=== PATIENT | female | born 1930 | race Caucasian/White ===

== ENCOUNTER 2016-08-13 11:56 | Emergency (ER) | payer OTHER ==
[2016-08-13 12:04] VITALS: BP 161/78; PULSE 78; TEMP 97.9; BMI 23.4
--- NOTE | 2016-08-13 12:11 | PDOC ---
History of Present Illness - General Chief Complaint: Cold Symptoms Stated Complaint: NECK PAIN Time Seen by Provider: 08/13/16 12:04 History Source: Patient Exam Limitations: No Limitations - History of Present Illness Initial Comments: 85 yo F history hyperlipidemia presents with congestion, head cold symptoms. She states that she and most of her family came down with a cold more than a week ago. She had congestion, sneezing, and cough, most of which improved. However, she has had persistent nasal congestion and postnasal drip that has not improved with her allergy medicines. She recently ran out of flonase, which she has taken in the past for sinus problems. No fever, chills, malaise. Denies SOB, cp. Past History - Past Medical History Allergies/Adverse Reactions: Allergies Allergy/AdvReac Type Severity Reaction Status Date / Time Penicillins Allergy Intermediate rash Verified 08/13/16 11:57 Home Medications: Ambulatory Orders Atorvastatin Ca [Lipitor] 10 mg PO HS 11/27/13 Doxycycline Hyclate [Vibramycin] 100 mg PO BID #14 capsule 08/13/16 Fluticasone Prop 0.05% Nasal [Flonase -] 1 - 2 spray NS DAILY #1 spray.pump 10/25 Hypercholesterolemia: Yes - Psycho/Social/Smoking Cessation Hx Anxiety: No Suicidal Ideation: No Smoking History: Never smoked Have you smoked in the past 12 months: No Information on smoking cessation initiated: No Hx Alcohol Use: No Drug/Substance Use Hx: No Substance Use Type: None Review of Systems - Review of Systems Able to Perform ROS?: Yes Comments:: GENERAL/CONSTITUTIONAL: No fever or chills. No weakness. HEAD, EYES, EARS, NOSE AND THROAT: No change in vision. No ear pain or discharge. No sore throat. +Nasal congestion and post nasal drip. CARDIOVASCULAR: No chest pain or shortness of breath. RESPIRATORY: No cough, wheezing, or hemoptysis. GASTROINTESTINAL: No nausea, vomiting, diarrhea or constipation. GENITOURINARY: No dysuria, frequency, or change in urination. MUSCULOSKELETAL: No joint or muscle swelling or pain. No neck or back pain. SKIN: No rash NEUROLOGIC: No headache, vertigo, loss of consciousness, or change in strength/ sensation. ENDOCRINE: No increased thirst. No abnormal weight change. HEMATOLOGIC/LYMPHATIC: No anemia, easy bleeding, or history of blood clots. ALLERGIC/IMMUNOLOGIC: No hives or skin allergy. *Physical Exam - Vital Signs Last Vital Signs Temp Pulse Resp BP Pulse Ox 97.9 F 78 18 161/78 100 08/13/16 11:59 08/13/16 11:59 08/13/16 11:59 08/13/16 11:59 08/13/16 11:59 - Physical Exam Comments: GENERAL: Awake, alert, and fully oriented, in no acute distress HEAD: No signs of trauma EYES: PERRLA, EOMI, sclera anicteric, conjunctiva clear ENT: Auricles normal inspection, hearing grossly normal, nares patent, oropharynx clear without exudates. Moist mucosa. Nasal septum deviated to the patient's left, with very small air passage. +Boggy turbinates B/L. NECK: Normal ROM, supple, no lymphadenopathy, JVD, or masses LUNGS: Breath sounds equal, clear to auscultation bilaterally. No wheezes, and no crackles HEART: Regular rate and rhythm, normal S1 and S2, no murmurs, rubs or gallops ABDOMEN: Soft, nontender, normoactive bowel sounds. No guarding, no rebound. No masses EXTREMITIES: Normal range of motion, no edema. No clubbing or cyanosis. No cords, erythema, or tenderness NEUROLOGICAL: Cranial nerves II through XII grossly intact. Normal speech, normal gait SKIN: Warm, Dry, normal turgor, no rashes or lesions noted. Medical Decision Making - Medical Decision Making 08/13/16 12:28 Will treat with abx based on protracted sinus symptoms despite resolution of the initial viral illness, as well as due to her physical findings. *DC/Admit/Observation/Transfer Diagnosis at time of Disposition: Sinus infection Qualifiers: Sinusitis location: unspecified location Chronicity: acute Recurrence: non- recurrent Qualified Code(s): J01.90 - Acute sinusitis, unspecified - Discharge Dispostion Disposition: HOME Condition at time of disposition: Stable Admit: No - Prescriptions Prescriptions: Fluticasone Prop 0.05% Nasal [Flonase -] 1 - 2 spray NS DAILY #1 spray.pump Doxycycline Hyclate [Vibramycin] 100 mg PO BID #14 capsule - Patient Instructions Printed Discharge Instructions: DI for Sinusitis
== END 2016-08-13 12:26 | disposition home or self-care (01) ==
LOC: FER 11:56
DX: J01.90 Acute sinusitis, unspecified (principal); E78.00 Pure hypercholesterolemia, unspecified
CPT/HCPCS: 99282-25

== ENCOUNTER 2017-08-22 12:09 | Emergency (ER) | payer OTHER ==
[2017-08-22 12:16] VITALS: BP 139/63; PULSE 72; TEMP 98.4; BMI 23.4
--- NOTE | 2017-08-22 14:01 | PDOC ---
History of Present Illness - General Chief Complaint: Cold Symptoms Stated Complaint: SINUS INFECTION Time Seen by Provider: 08/22/17 12:11 - History of Present Illness Initial Comments: 08/22/17 14:48 Chief complaint: Nasal and facial congestion with pain over the cheeks for 2 days History of present illness: URI symptoms for 1 week, with increased nasal congestion and pain over the maxillary sinuses for 2 days. No fever/chills. Review of systems: No chest pain, shortness of breath, cough, abdominal pain, nausea, vomiting, diarrhea, urinary tract symptoms, vaginal bleeding or discharge. No visual or focal neurologic symptoms. Past medical history: Hypercholesterolemia on Lipitor, frequency sinus infections Social/family history reviewed and noncontributory Physical exam: Alert oriented no acute distress cooperative Afebrile, vital signs normal HEENT: Nasal congestion, mild tenderness to percussion over the maxillary sinuses. No purulent discharge. Ears and throat clear. Neck supple without bruit mass or nodes Chest clear, full breath sounds throughout bilaterally, no wheezes rales or rhonchi CV without murmur rub or gallop pulses full and symmetric no JVD or edema no bruits Abdomen soft nontender without mass or organomegaly Neurological intact Skin clear, no rash, adequate turgor and wet mucous membranes Extremities no CCE Impression: Probable viral URI, possible superimposed sinus infection Plan: Antibiotics rest fluids and decongestant. Recheck if no improvement 2-3 days Past History - Past Medical History Allergies/Adverse Reactions: Allergies Allergy/AdvReac Type Severity Reaction Status Date / Time Penicillins Allergy Intermediate rash Verified 08/22/17 12:10 Home Medications: Ambulatory Orders Azithromycin [Zithromax 250mg Tablets -] 250 mg PO UTDICT #6 tab 08/22/17 COPD: No Hypercholesterolemia: Yes - Suicide/Smoking/Psychosocial Hx Smoking History: Never smoked Have you smoked in the past 12 months: No Information on smoking cessation initiated: No Hx Alcohol Use: No Drug/Substance Use Hx: No Substance Use Type: None *Physical Exam - Vital Signs Last Vital Signs Temp Pulse Resp BP Pulse Ox 98.4 F 72 16 139/63 99 08/22/17 12:10 08/22/17 12:10 08/22/17 12:10 08/22/17 12:10 08/22/17 12:10 *DC/Admit/Observation/Transfer Diagnosis at time of Disposition: Upper respiratory infection Qualifiers: URI type: unspecified viral URI Qualified Code(s): J06.9 - Acute upper respiratory infection, unspecified - Discharge Dispostion Disposition: HOME Condition at time of disposition: Stable - Prescriptions Prescriptions: Azithromycin [Zithromax 250mg Tablets -] 250 mg PO UTDICT #6 tab - Referrals - Patient Instructions Printed Discharge Instructions: DI for Viral Upper Respiratory Infection -- Adult Additional Instructions: Return to ER if there is fever, chest pain, shortness of breath, excessive fatigue, nausea, vomiting, or diarrhea. Otherwise follow-up with Dr. Reza in 3- 5 days. - Post Discharge Activity
== END 2017-08-22 14:26 | disposition home or self-care (01) ==
LOC: FER 12:09
DX: J06.9 Acute upper respiratory infection, unspecified (principal); E78.00 Pure hypercholesterolemia, unspecified
CPT/HCPCS: 99281-25

== ENCOUNTER 2021-02-25 13:20 | Inpatient (IN) | payer OTHER ==
[2021-02-25 13:45] LABS: BASO % 0.8 % (0-2.0); EOS % 0.1 % (0-4.5); HEMATOCRIT 33.3 % (32.4-45.2); HEMOGLOBIN 11.5 GM/dl (10.7-15.3); MCH 30.1 pg (25.7-33.7); MCHC 34.6 g/dl (32.0-36.0); MEAN CELL VOLUME 86.9 fl (80-96); MEAN PLT VOLUME 7.6 fl (7.5-11.1); MONO % 1.8 % (3.8-10.2); NEUT % 91.3 % (42.8-82.8); PLATELET COUNT 387 10^3/uL (134-434); RBC 3.83 M/mm3 (3.60-5.2); RDW 12.8 % (11.6-15.6); WHITE BLOOD COUNT 13.4 K/mm3 (4.0-10.8)
[2021-02-25 14:05] LABS: ACTIVATED PTT 25.7 SECONDS (25.2-36.5)
[2021-02-25 14:10] LABS: INR 1.19 (0.82-1.09); PROTHROMBIN TIME (PATIENT) 13.2 SEC (10.2-13.0)
[2021-02-25] MEDS ORDERED: VANCOMYCIN 1 GM in D5W (PRE-DOCKED) 1,000 MG/250 ML IVPB ONE (14:20)
[2021-02-25] MEDS ORDERED: AZTREONAM 1 GM in DEXTROSE 5%-WATER - 50 ML IVPB ONE (14:21)
[2021-02-25 14:24] LABS: ALBUMIN 3.7 g/dl (3.4-5.0); BILIRUBIN,TOTAL 2.1 mg/dl (0.2-1); CALCIUM 8.1 mg/dl (8.5-10); CREATININE 0.5 mg/dl (0.55-1.3); TOT PROT 6.6 g/dl (6.4-8.2)
[2021-02-25] MEDS ORDERED: ASPIRIN 325 MG TABLET ONE (14:58)
[2021-02-25] MEDS ORDERED: SODIUM CHLORIDE 0.9% 1000 ML INFUS.BAG IV ONE (15:01)
[2021-02-25] MEDS ORDERED: ASPIRIN 81 MG CHEWABLE TABLETS PO ONE (15:01)
[2021-02-25 15:17] LABS: EPITHELIAL CELLS FEW /hpf
[2021-02-25] MEDS ORDERED: SODIUM CHLORIDE 1,000 ML IV SCH ×2 (17:15→23:30)
[2021-02-25 18:39] LABS: HEMOGLOBIN 9.9 GM/dL (10.7-15.3); MCH 29.7 pg (25.7-33.7); MCHC 35.3 g/dl (32.0-36.0); MEAN PLT VOLUME 7.5 fl (7.5-11.1); PLATELET COUNT 295 10^3/uL (134-434); RBC 3.33 M/mm3 (3.60-5.2); RDW 13.5 % (11.6-15.6); WHITE BLOOD COUNT 12.8 K/mm3 (4.0-10.0)
[2021-02-25 18:52] LABS: CHLORIDE 76 mmol/L (98-107)
[2021-02-25 18:54] LABS: BLOOD UREA NITROGEN 9.4 mg/dL (7-18); CALCIUM 7.8 mg/dL (8.5-10.1)
[2021-02-25 18:55] LABS: AMYLASE 52 U/L (25-115); CO2 20 mmol/L (21-32); GLUCOSE,RANDOM 93 mg/dL (74-106); MAGNESIUM 1.6 mg/dL (1.8-2.4)
[2021-02-25 18:58] LABS: CREATININE 0.4 mg/dL (0.55-1.3); PHOSPHOROUS 2.3 mg/dL (2.5-4.9)
[2021-02-25 19:15] LABS: ANION GAP 14 MMOL/L (8-16); SODIUM 110 mmol/L (136-145)
[2021-02-25 19:36] LABS: OSMOLALITY,SERUM 216 mosm/kg (278-305)
[2021-02-25] MEDS: MUPIROCIN 2% TOPICAL OINTMENT FOR DECOLONIZATION NS SCH (21:59)
[2021-02-25] MEDS: CHLORHEXIDINE GLUCONATE 4% CLEANSER FOR DECOLONIZATION TP SCH (21:59)
[2021-02-25] MEDS ORDERED: HEPARIN NA (PORCINE) 5,000 UNITS/ML 1ML VIAL SQ SCH (22:00)
[2021-02-25 22:49] LABS: CHLORIDE 78 mmol/L (98-107)
[2021-02-25 22:50] LABS: BLOOD UREA NITROGEN 8.7 mg/dL (7-18); CALCIUM 7.9 mg/dL (8.5-10.1); CO2 20 mmol/L (21-32); GLUCOSE,RANDOM 86 mg/dL (74-106); LIPASE 312 U/L (73-393)
[2021-02-25 22:54] LABS: CREATININE 0.4 mg/dL (0.55-1.3)
[2021-02-25 23:03] LABS: ANION GAP 13 MMOL/L (8-16); SODIUM 112 mmol/L (136-145)
[2021-02-25] MEDS ORDERED: SODIUM CHLORIDE 0.45% 1,000 ML IV SCH (23:30)
[2021-02-26 02:37] LABS: CHLORIDE 82 mmol/L (98-107)
[2021-02-26 02:38] LABS: CALCIUM 8.3 mg/dL (8.5-10.1)
[2021-02-26 02:39] LABS: BLOOD UREA NITROGEN 8.3 mg/dL (7-18); CO2 21 mmol/L (21-32); GLUCOSE,RANDOM 86 mg/dL (74-106)
[2021-02-26 02:42] LABS: CREATININE 0.4 mg/dL (0.55-1.3)
[2021-02-26 02:49] LABS: ANION GAP 13 MMOL/L (8-16); SODIUM 116 mmol/L (136-145)
[2021-02-26] MEDS ORDERED: SODIUM CHLORIDE 0.45% 1,000 ML IV SCH (03:00)
[2021-02-26 07:26] LABS: CHLORIDE 83 mmol/L (98-107)
[2021-02-26 07:27] LABS: CALCIUM 8.2 mg/dL (8.5-10.1)
[2021-02-26 07:28] LABS: CO2 22 mmol/L (21-32); GLUCOSE,RANDOM 76 mg/dL (74-106)
[2021-02-26 07:31] LABS: CREATININE 0.4 mg/dL (0.55-1.3)
[2021-02-26 07:36] LABS: ANION GAP 13 MMOL/L (8-16); SODIUM 118 mmol/L (136-145)
[2021-02-26] MEDS ORDERED: NAPH,MB-DB/K PH,MBDB POWDER PACKET NGT ONE (07:50)
[2021-02-26] MEDS ORDERED: MAGNESIUM 2GM/50ML STERILE WATER IVPB IVPB ONE (07:50)
[2021-02-26] MEDS: KCL 10 MEQ IVPB 10 MEQ/100 ML INFUS.BAG IVPB SCH ×4 (08:45→21:34)
[2021-02-26] MEDS ORDERED: AZTREONAM 1 GM VIAL (RESTRICTED TO ID) ONE ×2 (09:18→16:51)
[2021-02-26] MEDS ORDERED: DEXTROSE 5%-WATER - 50 ML IVPB ONE ×2 (09:19→16:51)
[2021-02-26] MEDS: AZITHROMYCIN IVPB 500 MG/250 ML BAG IVPB SCH (10:06)
[2021-02-26] MEDS: AZTREONAM 1 GM in DEXTROSE 5%-WATER - 50 ML IVPB SCH ×2 (10:19→17:03)
[2021-02-26] MEDS: MUPIROCIN 2% TOPICAL OINTMENT FOR DECOLONIZATION NS SCH ×2 (10:20→22:10)
[2021-02-26] MEDS: VANCOMYCIN 1 GRAM (PRE-DOCKED) 1,000 MG/250 ML BAG IVPB SCH ×2 (11:09→22:10)
[2021-02-26 12:06] LABS: CHLORIDE 84 mmol/L (98-107)
[2021-02-26 12:07] LABS: CALCIUM 8.5 mg/dL (8.5-10.1)
[2021-02-26 12:08] LABS: BLOOD UREA NITROGEN 8.6 mg/dL (7-18); CO2 24 mmol/L (21-32); GLUCOSE,RANDOM 122 mg/dL (74-106)
[2021-02-26 12:11] LABS: CREATININE 0.5 mg/dL (0.55-1.3)
[2021-02-26 12:14] LABS: IRON SERUM 23 ug/dL (50-175); TOTAL IRON BINDING CAPACITY 252 ug/dL (250-450)
[2021-02-26 12:16] LABS: ANION GAP 12 MMOL/L (8-16); SODIUM 119 mmol/L (136-145)
[2021-02-26 12:56] LABS: CHLORIDE 85 mmol/L (98-107)
[2021-02-26 12:59] LABS: BLOOD UREA NITROGEN 8.6 mg/dL (7-18); CO2 22 mmol/L (21-32); GLUCOSE,RANDOM 120 mg/dL (74-106)
[2021-02-26 13:02] LABS: CREATININE 0.5 mg/dL (0.55-1.3)
[2021-02-26 13:05] LABS: ANION GAP 12 MMOL/L (8-16); SODIUM 118 mmol/L (136-145)
[2021-02-26] MEDS: HEPARIN NA (PORCINE) 5,000 UNITS/ML 1ML VIAL SQ SCH ×2 (14:37→21:35)
[2021-02-26 15:29] LABS: CHLORIDE 85 mmol/L (98-107)
[2021-02-26 15:32] LABS: CALCIUM 8.2 mg/dL (8.5-10.1); CO2 23 mmol/L (21-32); GLUCOSE,RANDOM 111 mg/dL (74-106)
[2021-02-26 15:35] LABS: ANION GAP 11 MMOL/L (8-16); CREATININE 0.5 mg/dL (0.55-1.3); SODIUM 119 mmol/L (136-145)
[2021-02-26] MEDS ORDERED: SODIUM CHLORIDE 0.45%/POT 20 MEQ/1,000 ML INFUS.BAG IV SCH (19:30)
[2021-02-26] MEDS ORDERED: METOPROLOL TARTRATE 5 MG/5 ML VIAL IVPUSH PRN (19:39)
[2021-02-26 19:51] LABS: CHLORIDE 84 mmol/L (98-107)
[2021-02-26 19:56] LABS: BLOOD UREA NITROGEN 7.8 mg/dL (7-18); CALCIUM 8.3 mg/dL (8.5-10.1); CO2 24 mmol/L (21-32); GLUCOSE,RANDOM 114 mg/dL (74-106)
[2021-02-26 20:00] LABS: CREATININE 0.5 mg/dL (0.55-1.3)
[2021-02-26 20:12] LABS: ANION GAP 11 MMOL/L (8-16); SODIUM 118 mmol/L (136-145)
[2021-02-26] MEDS ORDERED: POTASSIUM CHLORIDE ORAL LIQUID 20 MEQ/15 ML PO ONE (21:03)
[2021-02-26] MEDS: CHLORHEXIDINE GLUCONATE 4% CLEANSER FOR DECOLONIZATION TP SCH (21:35)
[2021-02-26] MEDS: METOPROLOL TARTRATE 5 MG/5 ML VIAL IVPUSH PRN (21:35)
[2021-02-26] MEDS ORDERED: ACETAMINOPHEN 1000 MG/100 ML VIAL (NON FORMULARY) IVPB ONE (22:28)
[2021-02-26] MEDS ORDERED: AMIODARONE IN DEXTROSE,ISO-OSM 150 MG/100 ML BAG IVPB ONE (23:21)
[2021-02-26] MEDS ORDERED: AMIODARONE IN DEXTROSE,ISO-OSM 150 MG/100 ML BAG ONE (23:28)
[2021-02-26] MEDS ORDERED: AMIODARONE IN DEXTROSE,ISO-OSM 360 MG/200 ML BAG IVPB ONE (23:40)
[2021-02-27] MEDS: KCL 10 MEQ IVPB 10 MEQ/100 ML INFUS.BAG IVPB SCH ×4 (00:05→12:54)
[2021-02-27] MEDS ORDERED: SODIUM CHLORIDE 0.45% 1,000 ML IV SCH ×3 (02:00→22:40)
[2021-02-27] MEDS ORDERED: PT OWN MED DRAWER 7, Y5N ONE ×2 (02:13→09:33)
[2021-02-27] MEDS ORDERED: AZTREONAM 1 GM VIAL (RESTRICTED TO ID) ONE ×2 (03:16→09:33)
[2021-02-27] MEDS ORDERED: DEXTROSE 5%-WATER - 50 ML IVPB ONE ×2 (03:17→09:33)
[2021-02-27] MEDS: AZTREONAM 1 GM in DEXTROSE 5%-WATER - 50 ML IVPB SCH ×3 (03:21→17:33)
[2021-02-27 03:34] LABS: CALCIUM 8.4 mg/dL (8.5-10.1)
[2021-02-27 03:35] LABS: BLOOD UREA NITROGEN 9.5 mg/dL (7-18)
[2021-02-27 03:38] LABS: CREATININE 0.6 mg/dL (0.55-1.3)
[2021-02-27] MEDS ORDERED: AMIODARONE IN DEXTROSE,ISO-OSM 360 MG/200 ML BAG IVPB SCH (05:40)
[2021-02-27 06:54] LABS: CHLORIDE 85 mmol/L (98-107)
[2021-02-27 06:55] LABS: BLOOD UREA NITROGEN 10.7 mg/dL (7-18); CO2 22 mmol/L (21-32); GLUCOSE,RANDOM 99 mg/dL (74-106); MAGNESIUM 2.2 mg/dL (1.8-2.4)
[2021-02-27 06:59] LABS: CREATININE 0.6 mg/dL (0.55-1.3)
[2021-02-27 07:00] LABS: PHOSPHOROUS 2.4 mg/dL (2.5-4.9)
[2021-02-27 07:27] LABS: ANION GAP 12 MMOL/L (8-16); SODIUM 118 mmol/L (136-145)
[2021-02-27] MEDS ORDERED: POTASSIUM CHLORIDE TABS 20 MEQ TABLET.ER (FP) PO ONE (07:30)
[2021-02-27] MEDS ORDERED: SODIUM CHLORIDE 1,000 ML IV SCH ×3 (07:30→22:00)
[2021-02-27 07:36] LABS: BASO % 0.1 % (0-2.0); EOS % 0.4 % (0-4.5); HEMATOCRIT 33.5 % (32.4-45.2); HEMOGLOBIN 11.8 GM/dL (10.7-15.3); LYMPH % 11.5 % (8-40); MCH 29.7 pg (25.7-33.7); MCHC 35.3 g/dl (32.0-36.0); MONO % 6.6 % (3.8-10.2); NEUT % 81.4 % (42.8-82.8); PLATELET COUNT 356 10^3/uL (134-434); RBC 3.98 M/mm3 (3.60-5.2); RDW 13.6 % (11.6-15.6); WHITE BLOOD COUNT 15.1 K/mm3 (4.0-10.0)
[2021-02-27] MEDS ORDERED: NAPH,MB-DB/K PH,MBDB POWDER PACKET NGT ONE (08:07)
[2021-02-27 08:26] LABS: MEAN CELL VOLUME 84.1 fl (80-96)
[2021-02-27] MEDS: AZITHROMYCIN IVPB 500 MG/250 ML BAG IVPB SCH (09:00)
[2021-02-27] MEDS: METOPROLOL TARTRATE 5 MG/5 ML VIAL IVPUSH PRN (09:50)
[2021-02-27] MEDS: VANCOMYCIN 1 GRAM (PRE-DOCKED) 1,000 MG/250 ML BAG IVPB SCH ×2 (11:11→20:46)
[2021-02-27 11:16] LABS: CALCIUM 8.3 mg/dL (8.5-10.1); CHLORIDE 84 mmol/L (98-107)
[2021-02-27 11:18] LABS: CO2 21 mmol/L (21-32); GLUCOSE,RANDOM 145 mg/dL (74-106)
[2021-02-27 11:20] LABS: CREATININE 0.8 mg/dL (0.55-1.3)
[2021-02-27 11:26] LABS: ANION GAP 12 MMOL/L (8-16); SODIUM 117 mmol/L (136-145)
[2021-02-27] MEDS: ASPIRIN 81 MG CHEWABLE TABLETS PO SCH (11:52)
[2021-02-27] MEDS: MUPIROCIN 2% TOPICAL OINTMENT FOR DECOLONIZATION NS SCH ×2 (12:00→21:05)
[2021-02-27] MEDS: METOPROLOL TARTRATE 25 MG TABLET (FP) PO SCH ×2 (12:54→21:05)
[2021-02-27] MEDS ORDERED: NAPH,MB-DB/K PH,MBDB POWDER PACKET PO ONE (13:02)
[2021-02-27 20:04] LABS: ANION GAP 11 MMOL/L (8-16); BLOOD UREA NITROGEN 11.2 mg/dL (7-18); CALCIUM 8.1 mg/dL (8.5-10.1); CHLORIDE 84 mmol/L (98-107); CO2 21 mmol/L (21-32); CREATININE 0.6 mg/dL (0.55-1.3); GLUCOSE,RANDOM 92 mg/dL (74-106); SODIUM 116 mmol/L (136-145)
[2021-02-27] MEDS ORDERED: SODIUM CHLORIDE 3% 500 ML/500 ML INFUS.BAG IV ONE (20:12)
[2021-02-27] MEDS: CHLORHEXIDINE GLUCONATE 4% CLEANSER FOR DECOLONIZATION TP SCH (21:05)
[2021-02-27] MEDS: QUEtiapine FUMARATE 25 MG TABLET PO SCH (21:45)
[2021-02-27] MEDS ORDERED: ENOXAPARIN NA (PORCINE) 60 MG/0.6 ML DISP.SYRIN SQ SCH (22:00)
[2021-02-27] MEDS ORDERED: SODIUM CHLORIDE 0.45% IV SCH (22:40)
[2021-02-27] MEDS ORDERED: KCL 20 MEQ IV SCH (22:40)
[2021-02-27] MEDS: APIXABAN 2.5 MG TABLET PO SCH (22:44)
[2021-02-27 23:23] LABS: CHLORIDE 87 mmol/L (98-107)
[2021-02-27 23:24] LABS: BLOOD UREA NITROGEN 9.9 mg/dL (7-18); CALCIUM 7.7 mg/dL (8.5-10.1); CO2 20 mmol/L (21-32); GLUCOSE,RANDOM 120 mg/dL (74-106)
[2021-02-27 23:29] LABS: CREATININE 0.7 mg/dL (0.55-1.3)
[2021-02-28 00:05] LABS: ANION GAP 10 MMOL/L (8-16); SODIUM 117 mmol/L (136-145)
[2021-02-28] MEDS ORDERED: LORazepam 2 MG/ML SDV VIAL IVPUSH PRN (00:29)
[2021-02-28] MEDS ORDERED: LORazepam 2 MG/ML SDV VIAL ONE (00:34)
[2021-02-28] MEDS ORDERED: DEXTROSE 5%-WATER - 50 ML IVPB ONE ×3 (00:59→17:33)
[2021-02-28] MEDS ORDERED: AZTREONAM 1 GM VIAL (RESTRICTED TO ID) ONE ×3 (00:59→17:32)
[2021-02-28] MEDS: AZTREONAM 1 GM in DEXTROSE 5%-WATER - 50 ML IVPB SCH ×3 (01:01→17:42)
[2021-02-28 01:22] LABS: CHLORIDE 88 mmol/L (98-107)
[2021-02-28 01:25] LABS: BLOOD UREA NITROGEN 9.7 mg/dL (7-18); CALCIUM 7.9 mg/dL (8.5-10.1); CO2 21 mmol/L (21-32); GLUCOSE,RANDOM 102 mg/dL (74-106)
[2021-02-28 01:28] LABS: CREATININE 0.6 mg/dL (0.55-1.3)
[2021-02-28 01:46] LABS: ANION GAP 10 MMOL/L (8-16); SODIUM 118 mmol/L (136-145)
[2021-02-28 07:36] LABS: BASO % 0.1 % (0-2.0); EOS % 1.5 % (0-4.5); HEMATOCRIT 34.5 % (32.4-45.2); HEMOGLOBIN 12.3 GM/dL (10.7-15.3); LYMPH % 10.6 % (8-40); MCH 30.2 pg (25.7-33.7); MCHC 35.6 g/dl (32.0-36.0); MEAN CELL VOLUME 84.9 fl (80-96); MEAN PLT VOLUME 7.8 fl (7.5-11.1); MONO % 6.6 % (3.8-10.2); NEUT % 81.2 % (42.8-82.8); PLATELET COUNT 310 10^3/uL (134-434); RBC 4.07 M/mm3 (3.60-5.2); RDW 14.1 % (11.6-15.6); WHITE BLOOD COUNT 12.9 K/mm3 (4.0-10.0)
[2021-02-28 08:00] LABS: PHOSPHOROUS 2.2 mg/dL (2.5-4.9)
[2021-02-28 08:02] LABS: BLOOD UREA NITROGEN 9.9 mg/dL (7-18); CALCIUM 8.5 mg/dL (8.5-10.1)
[2021-02-28 08:05] LABS: CREATININE 0.7 mg/dL (0.55-1.3)
[2021-02-28] MEDS ORDERED: SODIUM CHLORIDE 3% 500 ML/500 ML INFUS.BAG IV ONE ×2 (09:00→16:34)
[2021-02-28] MEDS: VANCOMYCIN 1 GRAM (PRE-DOCKED) 1,000 MG/250 ML BAG IVPB SCH (09:28)
[2021-02-28] MEDS: ASPIRIN 81 MG CHEWABLE TABLETS PO SCH (09:29)
[2021-02-28] MEDS: METOPROLOL TARTRATE 25 MG TABLET (FP) PO SCH ×2 (09:29→21:39)
[2021-02-28] MEDS: APIXABAN 2.5 MG TABLET PO SCH ×2 (09:29→21:39)
[2021-02-28] MEDS: MUPIROCIN 2% TOPICAL OINTMENT FOR DECOLONIZATION NS SCH ×2 (10:30→21:39)
[2021-02-28 11:10] LABS: CALCIUM 7.9 mg/dL (8.5-10.1)
[2021-02-28 11:13] LABS: CREATININE 0.7 mg/dL (0.55-1.3)
[2021-02-28] MEDS ORDERED: SODIUM CHLORIDE 1,000 ML IV SCH ×2 (11:15→16:14)
[2021-02-28 15:39] LABS: BLOOD UREA NITROGEN 8.5 mg/dL (7-18); CALCIUM 8.5 mg/dL (8.5-10.1)
[2021-02-28 15:43] LABS: CREATININE 0.7 mg/dL (0.55-1.3)
[2021-02-28 19:27] LABS: CALCIUM 8.3 mg/dL (8.5-10.1)
[2021-02-28 19:28] LABS: BLOOD UREA NITROGEN 8.7 mg/dL (7-18)
[2021-02-28 19:31] LABS: CREATININE 0.6 mg/dL (0.55-1.3)
[2021-02-28] MEDS: QUEtiapine FUMARATE 25 MG TABLET PO SCH (21:39)
[2021-02-28] MEDS: CHLORHEXIDINE GLUCONATE 4% CLEANSER FOR DECOLONIZATION TP SCH (22:09)
[2021-03-01] MEDS ORDERED: DEXTROSE 5%-WATER - 50 ML IVPB ONE ×3 (01:06→17:28)
[2021-03-01] MEDS ORDERED: AZTREONAM 1 GM VIAL (RESTRICTED TO ID) ONE ×3 (01:06→17:27)
[2021-03-01] MEDS: AZTREONAM 1 GM in DEXTROSE 5%-WATER - 50 ML IVPB SCH ×3 (01:07→17:38)
[2021-03-01 01:20] LABS: CALCIUM 8.1 mg/dL (8.5-10.1)
[2021-03-01 01:21] LABS: BLOOD UREA NITROGEN 9.2 mg/dL (7-18)
[2021-03-01 01:25] LABS: CREATININE 0.6 mg/dL (0.55-1.3)
[2021-03-01] MEDS ORDERED: SODIUM CHLORIDE 1,000 ML IV SCH ×2 (01:45→13:51)
[2021-03-01 07:39] LABS: CALCIUM 8.6 mg/dL (8.5-10.1)
[2021-03-01 07:41] LABS: BLOOD UREA NITROGEN 10.8 mg/dL (7-18)
[2021-03-01 07:43] LABS: CREATININE 0.6 mg/dL (0.55-1.3)
[2021-03-01] MEDS: METOPROLOL TARTRATE 25 MG TABLET (FP) PO SCH ×2 (09:24→21:08)
[2021-03-01] MEDS: ASPIRIN 81 MG CHEWABLE TABLETS PO SCH (09:24)
[2021-03-01] MEDS: APIXABAN 2.5 MG TABLET PO SCH ×2 (09:24→21:08)
[2021-03-01] MEDS: VANCOMYCIN 1 GRAM (PRE-DOCKED) 1,000 MG/250 ML BAG IVPB SCH ×2 (09:30→23:47)
[2021-03-01 09:48] LABS: BASO % 0.4 % (0-2.0); EOS % 1.8 % (0-4.5); HEMATOCRIT 35.4 % (32.4-45.2); HEMOGLOBIN 12.2 GM/dL (10.7-15.3); LYMPH % 11.1 % (8-40); MCH 29.9 pg (25.7-33.7); MCHC 34.3 g/dl (32.0-36.0); MEAN CELL VOLUME 87.2 fl (80-96); MEAN PLT VOLUME 7.8 fl (7.5-11.1); MONO % 7.9 % (3.8-10.2); NEUT % 78.8 % (42.8-82.8); PLATELET COUNT 320 10^3/uL (134-434); RBC 4.06 M/mm3 (3.60-5.2); RDW 14.3 % (11.6-15.6); WHITE BLOOD COUNT 10.4 K/mm3 (4.0-10.0)
[2021-03-01 10:11] LABS: BLOOD UREA NITROGEN 9.3 mg/dL (7-18); CALCIUM 7.5 mg/dL (8.5-10.1); MAGNESIUM 1.8 mg/dL (1.8-2.4)
[2021-03-01 10:15] LABS: CREATININE 0.5 mg/dL (0.55-1.3); PHOSPHOROUS 2.3 mg/dL (2.5-4.9)
[2021-03-01] MEDS: MUPIROCIN 2% TOPICAL OINTMENT FOR DECOLONIZATION NS SCH ×2 (13:57→21:09)
[2021-03-01 13:59] LABS: BLOOD UREA NITROGEN 12.4 mg/dL (7-18); CALCIUM 8.6 mg/dL (8.5-10.1)
[2021-03-01 14:02] LABS: CREATININE 0.6 mg/dL (0.55-1.3)
[2021-03-01] MEDS: SODIUM CHLORIDE 1 GM TABLET PO SCH ×2 (17:36→22:39)
[2021-03-01] MEDS ORDERED: PT OWN MED DRAWER 7, Y5N ONE (21:02)
[2021-03-01] MEDS: CHLORHEXIDINE GLUCONATE 4% CLEANSER FOR DECOLONIZATION TP SCH (21:08)
[2021-03-01] MEDS: QUEtiapine FUMARATE 25 MG TABLET PO SCH (21:08)
[2021-03-02] MEDS ORDERED: PT OWN MED DRAWER 7, Y5N ONE ×3 (02:28→17:38)
[2021-03-02] MEDS ORDERED: DEXTROSE 5%-WATER - 50 ML IVPB ONE ×2 (03:27→10:09)
[2021-03-02] MEDS ORDERED: AZTREONAM 1 GM VIAL (RESTRICTED TO ID) ONE ×2 (03:27→10:09)
[2021-03-02] MEDS: AZTREONAM 1 GM in DEXTROSE 5%-WATER - 50 ML IVPB SCH ×3 (03:38→18:26)
[2021-03-02 07:28] LABS: HEMATOCRIT 31.8 % (32.4-45.2); HEMOGLOBIN 11.1 GM/dL (10.7-15.3); MCH 30.4 pg (25.7-33.7); MCHC 34.8 g/dl (32.0-36.0); MEAN CELL VOLUME 87.1 fl (80-96); MEAN PLT VOLUME 8.4 fl (7.5-11.1); PLATELET COUNT 360 10^3/uL (134-434); RBC 3.65 M/mm3 (3.60-5.2); RDW 14.5 % (11.6-15.6); WHITE BLOOD COUNT 13.5 K/mm3 (4.0-10.0)
[2021-03-02 07:50] LABS: CALCIUM 8.4 mg/dL (8.5-10.1)
[2021-03-02 07:51] LABS: BLOOD UREA NITROGEN 17.1 mg/dL (7-18)
[2021-03-02 07:53] LABS: CREATININE 0.6 mg/dL (0.55-1.3)
[2021-03-02 07:54] LABS: PHOSPHOROUS 2.9 mg/dL (2.5-4.9)
[2021-03-02 07:55] LABS: BILIRUBIN,TOTAL 0.8 mg/dL (0.2-1); TOT PROT 5.4 g/dl (6.4-8.2)
[2021-03-02 08:03] LABS: ALBUMIN 2.3 g/dl (3.4-5.0)
[2021-03-02] MEDS ORDERED: POLYETHYLENE GLYCOL 3350 119 GM BTL PO SCH (10:00)
[2021-03-02] MEDS: VANCOMYCIN 1 GRAM (PRE-DOCKED) 1,000 MG/250 ML BAG IVPB SCH (10:06)
[2021-03-02] MEDS: DOCUSATE SODIUM 100 MG CAPSULE (FP) PO SCH ×2 (10:12→22:47)
[2021-03-02] MEDS: METOPROLOL TARTRATE 25 MG TABLET (FP) PO SCH (10:13)
[2021-03-02] MEDS: APIXABAN 2.5 MG TABLET PO SCH ×2 (10:13→21:33)
[2021-03-02] MEDS: SODIUM CHLORIDE 1 GM TABLET PO SCH (10:13)
[2021-03-02 11:22] LABS: BLOOD UREA NITROGEN 16.3 mg/dL (7-18); CALCIUM 8.4 mg/dL (8.5-10.1)
[2021-03-02 11:26] LABS: CREATININE 0.7 mg/dL (0.55-1.3)
[2021-03-02] MEDS: MUPIROCIN 2% TOPICAL OINTMENT FOR DECOLONIZATION NS SCH ×2 (11:33→21:33)
[2021-03-02] MEDS: POLYETHYLENE GLYCOL (HEALTHYLAX) 3350 17 GM PACKET PO SCH (11:33)
[2021-03-02 16:22] LABS: CALCIUM 8.5 mg/dL (8.5-10.1)
[2021-03-02 16:26] LABS: CREATININE 0.7 mg/dL (0.55-1.3)
[2021-03-02] MEDS: CHLORHEXIDINE GLUCONATE 4% CLEANSER FOR DECOLONIZATION TP SCH (21:33)
[2021-03-02] MEDS: QUEtiapine FUMARATE 25 MG TABLET PO SCH (21:33)
[2021-03-03] MEDS ORDERED: AZTREONAM 1 GM VIAL (RESTRICTED TO ID) ONE ×3 (01:03→17:37)
[2021-03-03] MEDS ORDERED: DEXTROSE 5%-WATER - 50 ML IVPB ONE ×2 (01:04→17:37)
[2021-03-03] MEDS: AZTREONAM 1 GM in DEXTROSE 5%-WATER - 50 ML IVPB SCH ×3 (01:13→18:15)
[2021-03-03] MEDS ORDERED: AMIODARONE HCL 150 MG/3 ML VIAL IVPUSH ONE (03:41)
[2021-03-03] MEDS ORDERED: METOPROLOL TARTRATE 5 MG/5 ML VIAL IVPUSH ONE (03:50)
[2021-03-03] MEDS ORDERED: METOPROLOL TARTRATE 5 MG/5 ML VIAL IVPUSH PRN (03:58)
[2021-03-03] MEDS ORDERED: dilTIAZem HCL 50 MG/10 ML - 10 ML VIAL IVPUSH ONE (05:11)
[2021-03-03] MEDS: AMIODARONE HCL 150 MG/3 ML VIAL IVPUSH ONE ×2 (05:20→05:32)
[2021-03-03 07:58] LABS: HEMATOCRIT 29.5 % (32.4-45.2); HEMOGLOBIN 10.1 GM/dL (10.7-15.3); MCHC 34.3 g/dl (32.0-36.0); MEAN CELL VOLUME 87.5 fl (80-96); PLATELET COUNT 352 10^3/uL (134-434); RBC 3.37 M/mm3 (3.60-5.2); RDW 14.4 % (11.6-15.6); WHITE BLOOD COUNT 11.8 K/mm3 (4.0-10.0)
[2021-03-03 08:16] LABS: ALBUMIN 2.2 g/dl (3.4-5.0)
[2021-03-03 08:17] LABS: BLOOD UREA NITROGEN 20.8 mg/dL (7-18); CALCIUM 8.3 mg/dL (8.5-10.1); MAGNESIUM 2.1 mg/dL (1.8-2.4)
[2021-03-03 08:20] LABS: CREATININE 0.6 mg/dL (0.55-1.3); PHOSPHOROUS 3.2 mg/dL (2.5-4.9)
[2021-03-03 08:21] LABS: BILIRUBIN,TOTAL 0.6 mg/dL (0.2-1); TOT PROT 5.4 g/dl (6.4-8.2)
[2021-03-03] MEDS: POLYETHYLENE GLYCOL (HEALTHYLAX) 3350 17 GM PACKET PO SCH (09:23)
[2021-03-03] MEDS: APIXABAN 2.5 MG TABLET PO SCH ×2 (09:23→21:35)
[2021-03-03] MEDS: DOCUSATE SODIUM 100 MG CAPSULE (FP) PO SCH ×2 (09:23→21:35)
[2021-03-03] MEDS: VANCOMYCIN 1 GRAM (PRE-DOCKED) 1,000 MG/250 ML BAG IVPB SCH (09:24)
[2021-03-03] MEDS: MUPIROCIN 2% TOPICAL OINTMENT FOR DECOLONIZATION NS SCH ×2 (09:29→21:34)
[2021-03-03] MEDS ORDERED: metoPROLOL SUCCINATE 25 MG TAB.SR.24H (FP) PO SCH (10:00)
[2021-03-03] MEDS ORDERED: metoPROLOL SUCCINATE 25 MG TAB.SR.24H (FP) PO ONE (10:45)
[2021-03-03] MEDS: LIDOCAINE 5% TOPICAL PATCH TP SCH (12:21)
[2021-03-03] MEDS: SODIUM CHLORIDE 1,000 ML IV SCH (14:04)
[2021-03-03] MEDS: CHLORHEXIDINE GLUCONATE 4% CLEANSER FOR DECOLONIZATION TP SCH (21:34)
[2021-03-03] MEDS: QUEtiapine FUMARATE 25 MG TABLET PO SCH (21:35)
[2021-03-03] MEDS: LIDOCAINE PATCH REMOVAL MC SCH (21:41)
[2021-03-04] MEDS ORDERED: AZTREONAM 1 GM VIAL (RESTRICTED TO ID) ONE ×3 (02:04→17:14)
[2021-03-04] MEDS: AZTREONAM 1 GM in DEXTROSE 5%-WATER - 50 ML IVPB SCH ×3 (02:09→18:11)
[2021-03-04] MEDS: MUPIROCIN 2% TOPICAL OINTMENT FOR DECOLONIZATION NS SCH ×2 (10:17→21:28)
[2021-03-04] MEDS: APIXABAN 2.5 MG TABLET PO SCH ×2 (10:20→21:27)
[2021-03-04] MEDS: DOCUSATE SODIUM 100 MG CAPSULE (FP) PO SCH ×2 (10:20→21:27)
[2021-03-04] MEDS: LIDOCAINE 5% TOPICAL PATCH TP SCH (10:20)
[2021-03-04] MEDS: VANCOMYCIN 1 GRAM (PRE-DOCKED) 1,000 MG/250 ML BAG IVPB SCH (10:20)
[2021-03-04] MEDS: SODIUM CHLORIDE 1,000 ML IV SCH ×2 (10:20→12:59)
[2021-03-04] MEDS: POLYETHYLENE GLYCOL (HEALTHYLAX) 3350 17 GM PACKET PO SCH (10:20)
[2021-03-04] MEDS ORDERED: DEXTROSE 5%-WATER - 50 ML IVPB ONE ×2 (11:01→17:15)
[2021-03-04] MEDS: SODIUM CHLORIDE 1 GM TABLET PO SCH ×2 (12:59→21:27)
[2021-03-04] MEDS: QUEtiapine FUMARATE 25 MG TABLET PO SCH (21:27)
[2021-03-04] MEDS: CHLORHEXIDINE GLUCONATE 4% CLEANSER FOR DECOLONIZATION TP SCH (21:28)
[2021-03-04] MEDS: LIDOCAINE PATCH REMOVAL MC SCH (21:31)
[2021-03-05] MEDS ORDERED: DEXTROSE 5%-WATER - 50 ML IVPB ONE (00:32)
[2021-03-05] MEDS ORDERED: AZTREONAM 1 GM VIAL (RESTRICTED TO ID) ONE ×2 (00:32→17:38)
[2021-03-05] MEDS: AZTREONAM 1 GM in DEXTROSE 5%-WATER - 50 ML IVPB SCH ×3 (02:28→18:09)
[2021-03-05] MEDS: SODIUM CHLORIDE 1,000 ML IV SCH ×2 (03:10→13:13)
[2021-03-05] MEDS: VANCOMYCIN 1 GRAM (PRE-DOCKED) 1,000 MG/250 ML BAG IVPB SCH (09:13)
[2021-03-05] MEDS: POLYETHYLENE GLYCOL (HEALTHYLAX) 3350 17 GM PACKET PO SCH (09:50)
[2021-03-05] MEDS: SODIUM CHLORIDE 1 GM TABLET PO SCH ×2 (09:50→21:28)
[2021-03-05] MEDS: MUPIROCIN 2% TOPICAL OINTMENT FOR DECOLONIZATION NS SCH ×2 (09:50→21:27)
[2021-03-05] MEDS: DOCUSATE SODIUM 100 MG CAPSULE (FP) PO SCH ×2 (09:50→21:27)
[2021-03-05] MEDS: LIDOCAINE 5% TOPICAL PATCH TP SCH (09:50)
[2021-03-05 11:25] LABS: BASO % 1.4 % (0-2.0); EOS % 2.2 % (0-4.5); HEMATOCRIT 29.1 % (32.4-45.2); MCH 30.5 pg (25.7-33.7); MCHC 34.5 g/dl (32.0-36.0); MEAN CELL VOLUME 88.5 fl (80-96); MEAN PLT VOLUME 7.8 fl (7.5-11.1); MONO % 6.7 % (3.8-10.2); NEUT % 75.7 % (42.8-82.8); PLATELET COUNT 452 10^3/uL (134-434); RBC 3.28 M/mm3 (3.60-5.2); RDW 14.6 % (11.6-15.6); WHITE BLOOD COUNT 7.8 K/mm3 (4.0-10.0)
[2021-03-05 11:44] LABS: CALCIUM 8.7 mg/dL (8.5-10.1)
[2021-03-05 11:45] LABS: ALBUMIN 2.4 g/dl (3.4-5.0); BLOOD UREA NITROGEN 17.4 mg/dL (7-18); MAGNESIUM 2.2 mg/dL (1.8-2.4)
[2021-03-05 11:48] LABS: CREATININE 0.7 mg/dL (0.55-1.3); PHOSPHOROUS 3.6 mg/dL (2.5-4.9)
[2021-03-05 11:49] LABS: BILIRUBIN,TOTAL 0.5 mg/dL (0.2-1); TOT PROT 5.9 g/dl (6.4-8.2)
[2021-03-05] MEDS: QUEtiapine FUMARATE 25 MG TABLET PO SCH (21:27)
[2021-03-05] MEDS: CHLORHEXIDINE GLUCONATE 4% CLEANSER FOR DECOLONIZATION TP SCH (21:27)
[2021-03-05] MEDS: LIDOCAINE PATCH REMOVAL MC SCH (21:28)
[2021-03-06] MEDS ORDERED: AZTREONAM 1 GM VIAL (RESTRICTED TO ID) ONE ×3 (01:23→17:24)
[2021-03-06] MEDS ORDERED: DEXTROSE 5%-WATER - 50 ML IVPB ONE ×2 (01:23→17:25)
[2021-03-06] MEDS: AZTREONAM 1 GM in DEXTROSE 5%-WATER - 50 ML IVPB SCH ×3 (01:24→17:26)
[2021-03-06 08:26] LABS: CALCIUM 8.9 mg/dL (8.5-10.1)
[2021-03-06 08:27] LABS: ALBUMIN 2.4 g/dl (3.4-5.0)
[2021-03-06 08:30] LABS: CREATININE 0.5 mg/dL (0.55-1.3)
[2021-03-06 08:31] LABS: BILIRUBIN,TOTAL 0.6 mg/dL (0.2-1)
[2021-03-06 08:32] LABS: TOT PROT 5.8 g/dl (6.4-8.2)
[2021-03-06] MEDS: SODIUM CHLORIDE 1 GM TABLET PO SCH ×2 (09:25→21:49)
[2021-03-06] MEDS: DOCUSATE SODIUM 100 MG CAPSULE (FP) PO SCH ×2 (09:25→21:48)
[2021-03-06] MEDS: POLYETHYLENE GLYCOL (HEALTHYLAX) 3350 17 GM PACKET PO SCH ×3 (09:25→21:49)
[2021-03-06] MEDS: MUPIROCIN 2% TOPICAL OINTMENT FOR DECOLONIZATION NS SCH (09:25)
[2021-03-06] MEDS: LIDOCAINE 5% TOPICAL PATCH TP SCH (09:28)
[2021-03-06] MEDS ORDERED: MINERAL OIL ENEMA 133 ML ENEMA PR ONE (12:26)
[2021-03-06] MEDS: SODIUM CHLORIDE 1,000 ML IV SCH (14:16)
[2021-03-06 16:40] VITALS: BMI 25.0
[2021-03-06] MEDS: LIDOCAINE PATCH REMOVAL MC SCH (21:49)
[2021-03-06] MEDS: CHLORHEXIDINE GLUCONATE 4% CLEANSER FOR DECOLONIZATION TP SCH (21:49)
[2021-03-06] MEDS: QUEtiapine FUMARATE 25 MG TABLET PO SCH (21:49)
[2021-03-07] MEDS ORDERED: DEXTROSE 5%-WATER - 50 ML IVPB ONE ×2 (02:01→09:24)
[2021-03-07] MEDS ORDERED: AZTREONAM 1 GM VIAL (RESTRICTED TO ID) ONE ×2 (02:01→09:24)
[2021-03-07] MEDS: AZTREONAM 1 GM in DEXTROSE 5%-WATER - 50 ML IVPB SCH ×2 (02:22→09:32)
[2021-03-07] MEDS: POLYETHYLENE GLYCOL (HEALTHYLAX) 3350 17 GM PACKET PO SCH ×3 (06:28→21:17)
[2021-03-07 07:58] LABS: BASO % 1.9 % (0-2.0); HEMATOCRIT 26.8 % (32.4-45.2); HEMOGLOBIN 9.2 GM/dL (10.7-15.3); LYMPH % 15.7 % (8-40); MCH 30.4 pg (25.7-33.7); MCHC 34.4 g/dl (32.0-36.0); MEAN CELL VOLUME 88.2 fl (80-96); MEAN PLT VOLUME 7.3 fl (7.5-11.1); MONO % 9.4 % (3.8-10.2); PLATELET COUNT 419 10^3/uL (134-434); RBC 3.04 M/mm3 (3.60-5.2); RDW 14.6 % (11.6-15.6); WHITE BLOOD COUNT 7.5 K/mm3 (4.0-10.0)
[2021-03-07 08:14] LABS: CALCIUM 8.7 mg/dL (8.5-10.1)
[2021-03-07 08:15] LABS: BLOOD UREA NITROGEN 13.9 mg/dL (7-18)
[2021-03-07 08:18] LABS: CREATININE 0.5 mg/dL (0.55-1.3)
[2021-03-07] MEDS: LIDOCAINE 5% TOPICAL PATCH TP SCH (09:31)
[2021-03-07] MEDS: DOCUSATE SODIUM 100 MG CAPSULE (FP) PO SCH ×2 (09:31→21:17)
[2021-03-07] MEDS: MULTIVITAMINS THER W-MINERALS COMBO TABLET (FP) PO SCH (09:31)
[2021-03-07] MEDS: SODIUM CHLORIDE 1 GM TABLET PO SCH ×2 (09:32→21:17)
[2021-03-07] MEDS: QUEtiapine FUMARATE 25 MG TABLET PO SCH (21:17)
[2021-03-07] MEDS: CHLORHEXIDINE GLUCONATE 4% CLEANSER FOR DECOLONIZATION TP SCH (21:17)
[2021-03-07] MEDS: LIDOCAINE PATCH REMOVAL MC SCH (21:17)
[2021-03-08] MEDS: POLYETHYLENE GLYCOL (HEALTHYLAX) 3350 17 GM PACKET PO SCH ×3 (06:12→21:19)
[2021-03-08 07:35] LABS: BASO % 1.5 % (0-2.0); EOS % 3.5 % (0-4.5); HEMOGLOBIN 8.3 GM/dL (10.7-15.3); LYMPH % 20.9 % (8-40); MCH 30.2 pg (25.7-33.7); MCHC 34.6 g/dl (32.0-36.0); MEAN CELL VOLUME 87.3 fl (80-96); MONO % 9.5 % (3.8-10.2); NEUT % 64.6 % (42.8-82.8); PLATELET COUNT 353 10^3/uL (134-434); RBC 2.74 M/mm3 (3.60-5.2); RDW 14.8 % (11.6-15.6); WHITE BLOOD COUNT 6.9 K/mm3 (4.0-10.0)
[2021-03-08 07:53] LABS: BLOOD UREA NITROGEN 12.4 mg/dL (7-18); CALCIUM 8.2 mg/dL (8.5-10.1)
[2021-03-08 07:57] LABS: CREATININE 0.4 mg/dL (0.55-1.3)
[2021-03-08 07:59] LABS: BILIRUBIN,TOTAL 0.5 mg/dL (0.2-1); TOT PROT 4.8 g/dl (6.4-8.2)
[2021-03-08 08:06] LABS: CARCINOEMBRYONIC ANTIGEN 1.1 ng/mL (0.0-4.7)
[2021-03-08 10:09] LABS: MAGNESIUM 1.8 mg/dL (1.8-2.4)
[2021-03-08 10:13] LABS: PHOSPHOROUS 3.3 mg/dL (2.5-4.9)
[2021-03-08] MEDS: DOCUSATE SODIUM 100 MG CAPSULE (FP) PO SCH ×2 (13:27→21:19)
[2021-03-08] MEDS: MULTIVITAMINS THER W-MINERALS COMBO TABLET (FP) PO SCH (13:30)
[2021-03-08] MEDS: LIDOCAINE 5% TOPICAL PATCH TP SCH (13:31)
[2021-03-08] MEDS: SODIUM CHLORIDE 1 GM TABLET PO SCH ×2 (13:31→21:48)
[2021-03-08] MEDS: QUEtiapine FUMARATE 25 MG TABLET PO SCH (21:48)
[2021-03-08] MEDS: LIDOCAINE PATCH REMOVAL MC SCH (22:16)
[2021-03-09] MEDS: POLYETHYLENE GLYCOL (HEALTHYLAX) 3350 17 GM PACKET PO SCH ×3 (06:20→21:15)
[2021-03-09 06:43] LABS: EOS % 3.4 % (0-4.5); HEMATOCRIT 24.4 % (32.4-45.2); HEMOGLOBIN 8.6 GM/dL (10.7-15.3); LYMPH % 20.1 % (8-40); MCH 30.9 pg (25.7-33.7); MCHC 35.1 g/dl (32.0-36.0); MONO % 9.4 % (3.8-10.2); NEUT % 65.1 % (42.8-82.8); PLATELET COUNT 354 10^3/uL (134-434); RBC 2.78 M/mm3 (3.60-5.2); RDW 14.4 % (11.6-15.6); WHITE BLOOD COUNT 6.8 K/mm3 (4.0-10.0)
[2021-03-09 07:02] LABS: CALCIUM 8.1 mg/dL (8.5-10.1)
[2021-03-09 07:03] LABS: ALBUMIN 2.1 g/dl (3.4-5.0); BLOOD UREA NITROGEN 12.4 mg/dL (7-18)
[2021-03-09 07:06] LABS: CREATININE 0.4 mg/dL (0.55-1.3)
[2021-03-09 07:08] LABS: BILIRUBIN,TOTAL 0.5 mg/dL (0.2-1); TOT PROT 5.2 g/dl (6.4-8.2)
[2021-03-09] MEDS: LIDOCAINE 5% TOPICAL PATCH TP SCH (09:10)
[2021-03-09] MEDS: DOCUSATE SODIUM 100 MG CAPSULE (FP) PO SCH ×2 (09:11→21:15)
[2021-03-09] MEDS: MULTIVITAMINS THER W-MINERALS COMBO TABLET (FP) PO SCH (09:12)
[2021-03-09] MEDS: SODIUM CHLORIDE 1 GM TABLET PO SCH ×2 (09:12→21:16)
[2021-03-09] MEDS ORDERED: POTASSIUM CHLORIDE TABS 20 MEQ TABLET.ER (FP) PO ONE ×2 (11:30→15:15)
[2021-03-09] MEDS: LIDOCAINE PATCH REMOVAL MC SCH (21:15)
[2021-03-09] MEDS: QUEtiapine FUMARATE 25 MG TABLET PO SCH (21:16)
[2021-03-10] MEDS: POLYETHYLENE GLYCOL (HEALTHYLAX) 3350 17 GM PACKET PO SCH (06:04)
[2021-03-10] MEDS ORDERED: POTASSIUM CHLORIDE TABS 20 MEQ TABLET.ER (FP) PO ONE (08:52)
[2021-03-10] MEDS: MULTIVITAMINS THER W-MINERALS COMBO TABLET (FP) PO SCH (09:06)
[2021-03-10] MEDS: SODIUM CHLORIDE 1 GM TABLET PO SCH (09:06)
[2021-03-10] MEDS: DOCUSATE SODIUM 100 MG CAPSULE (FP) PO SCH (09:07)
[2021-03-10] MEDS: LIDOCAINE 5% TOPICAL PATCH TP SCH (09:07)
[2021-03-10 09:17] VITALS: BP 118/57; PULSE 73; TEMP 97.7
[2021-03-10] MEDS ORDERED: TAMSULOSIN HCL 0.4 MG CAP PO ONE (09:52)
[2021-03-11] MEDS ORDERED: TAMSULOSIN HCL 0.4 MG CAP PO SCH (08:30)
== END 2021-03-10 12:09 | disposition home or self-care (01) | DRG 640 ==
LOC: FER 13:20 → JICU 17:45 → J4W 03-02 22:33
PROVIDERS: ADMIT Internal Medicine Pulmonary Disease; ATTEND Internal Medicine
PROC: 0HQ0XZZ Repair Scalp Skin, External Approach (ICD-10-PCS; principal; 2021-02-25)
DX: E87.1 Hypo-osmolality and hyponatremia (principal); G93.41 Metabolic encephalopathy; J18.9 Pneumonia, unspecified organism; N13.30 Unspecified hydronephrosis; J90 Pleural effusion, not elsewhere classified; S01.01XA Laceration without foreign body of scalp, initial encounter; E78.5 Hyperlipidemia, unspecified; R47.81 Slurred speech; I25.10 Atherosclerotic heart disease of native coronary artery without angina pectoris; F03.90 Unspecified dementia, unspecified severity, without behavioral disturbance, psychotic disturbance, mood disturbance, and anxiety; E78.00 Pure hypercholesterolemia, unspecified; M19.90 Unspecified osteoarthritis, unspecified site; R29.703 NIHSS score 3; R41.82 Altered mental status, unspecified; I10 Essential (primary) hypertension; I34.0 Nonrheumatic mitral (valve) insufficiency; M17.0 Bilateral primary osteoarthritis of knee; R19.00 Intra-abdominal and pelvic swelling, mass and lump, unspecified site; R19.5 Other fecal abnormalities; K59.00 Constipation, unspecified; R33.9 Retention of urine, unspecified; I48.0 Paroxysmal atrial fibrillation; K57.10 Diverticulosis of small intestine without perforation or abscess without bleeding; W18.30XA Fall on same level, unspecified, initial encounter; Y92.098 Other place in other non-institutional residence as the place of occurrence of the external cause; Z88.0 Allergy status to penicillin
CPT/HCPCS: 36415; 70450-TC; 70551-TC; 71045-TC-FY; 72125-TC; 73562-TC-LT-FY; 74177-TC; 74240-TC-FY; 76775-TC; 80048; 80053; 80061; 81003; 81015; 82105; 82150; 82272; 82378; 82550; 82553; 82570; 82728; 82962; 83540; 83550; 83690; 83735; 83930; 83935; 84100; 84300; 84443; 84484; 85025; 85027; 85045; 85610; 85730; 86301; 86850; 86900; 86901; 87040; 87086; 87899; 93005; 93010; 93306-TC; 93880-TC; 97116-GP; 97162-GP; 99291; C9803; G0480; J0131; J0282; J1644; Q9967; U0003; U0005